=== PATIENT | female | born 1955 | race Caucasian/White ===

== ENCOUNTER 2016-08-03 08:14 | Outpatient (CLI) | payer BC | END 2016-08-03 08:15 | disposition home or self-care (01) | LOC: NAVSJIPCSP 08:14 | PROVIDERS: ATTEND Internal Medicine | DX: E78.5 Hyperlipidemia, unspecified (principal) | CPT/HCPCS: 36415; 80061 ==

== ENCOUNTER 2016-10-31 09:20 | Outpatient (CLI) | payer BC ==
[2016-10-31 14:29] LABS: Cardiac Risk 3.5 (Less than 4.5)
== END 2016-10-31 09:21 | disposition home or self-care (01) ==
LOC: NAVSJIPCSP 09:20
PROVIDERS: ATTEND Internal Medicine
DX: E78.5 Hyperlipidemia, unspecified (principal); I11.9 Hypertensive heart disease without heart failure; Z79.899 Other long term (current) drug therapy
CPT/HCPCS: 36415; 80061

== ENCOUNTER 2017-01-29 08:24 | Outpatient (CLI) | payer BC ==
[2017-01-29 12:44] LABS: #Basophils 0.1 thou/uL (0.0-0.2); #Eosinphils 0.1 thou/uL (0.0-0.7); #Lymphocytes 3.5 thou/uL (1.20-3.40); #Monocytes 0.5 thou/uL (0.11-0.59); #Neutrophils 2.8 thou/uL (1.40-6.50); %Eosinophils 1.7 % (0.0-10.0); %Lymphocytes 49.9 % (21.0-51.0); %Monocytes 7.4 % (0.0-10.0); %Neutrophils 40.1 % (42.0-75.0); Hemoglobin 12.7 g/dL (12.0-16.0); Mean Corpuscular Volume 97.1 fl (81.0-99.0); Mean Platelet Volume 6.5 fL (7.4-10.4); Platelet Count 249 thou/uL (130-400); Red Blood Cell (RBC) Count 3.97 mill/uL (4.20-5.40); White Blood Cell (WBC) Count 6.9 thou/uL (4.8-10.8)
[2017-01-29 13:12] LABS: Bilirubin Negative (Negative); Blood, Urine Negative (Negative); Clarity Clear (Clear); Glucose, Urine (Dipstick) Negative (Negative); Leukocyte Negative (Negative); Nitrite Negative (Negative); Protein, Urine (Dipstick) Negative (Neg-Trace); Urobilinogen 0.2 mg/dL (0.2-1.0); pH, Urine 5.5 (5.0-9.0)
[2017-01-29 13:46] LABS: Specific Gravity, Urine 1.009 (1.002-1.036)
[2017-01-29 19:52] LABS: ALT (SGPT) 21 U/L (8-55); AST (SGOT) 19 U/L (5-34); Albumin 4.2 g/dL (3.5-5.0); Alkaline Phosphatase 71 U/L (40-150); Anion Gap 12 mmol/L (10-20); BUN (Urea Nitrogen) 16 mg/dL (9.8-20.1); Bilirubin, Total 0.7 mg/dL (0.2-1.2); Calc. Creatinine Clearance 0 mL/min (70-130); Calcium 9.2 mg/dL (7.8-10.44); Carbon Dioxide 24 mmol/L (22-29); Cardiac Risk 3.1 (Less than 4.5); Chloride 107 mmol/L (98-107); Cholesterol 145 mg/dl (< 200 Desired); Estimated GFR-MDRD 64; Globulin 2.3 g/dL (2.4-3.5); Glucose 84 mg/dL (70-105); HDL Cholesterol 47 mg/dL (>60 Neg Risk); LDL Cholesterol, Calculated 61 mg/dL; Potassium 4.3 mmol/L (3.5-5.1); Protein, Total 6.5 g/dL (6.0-8.3); Sodium 139 mmol/L (136-145); Triglycerides 186 mg/dL (Less than 150)
== END 2017-01-29 08:25 ==
LOC: NAVSJIPCSP 08:24
PROVIDERS: ATTEND Internal Medicine
DX: I11.9 Hypertensive heart disease without heart failure (principal); E78.5 Hyperlipidemia, unspecified; F32.4 Major depressive disorder, single episode, in partial remission; G47.33 Obstructive sleep apnea (adult) (pediatric); Z79.899 Other long term (current) drug therapy
CPT/HCPCS: 36415; 80053; 80061; 81003; 85025

== ENCOUNTER 2019-02-05 16:52 | Emergency (ER) | payer SELFPAY ==
[2019-02-05] MEDS ORDERED: Sodium Chloride 0.9% 1,000 ML ONE ×3 (17:08→18:57)
[2019-02-05] MEDS ORDERED: Morphine 4 MG/ML VIAL ONE ×2 (17:08→17:37)
[2019-02-05] MEDS ORDERED: Ondansetron PF 4 MG/2 ML Vial ONE (17:08)
[2019-02-05 17:16] LABS: Hemoglobin 14.2 g/dL (12.0-16.0); Mean Corpuscular HGB CONC 32.9 g/dL (32.0-36.0); Mean Corpuscular Hemoglobin 31.5 pg (27.0-31.0); Mean Corpuscular Volume 95.9 fL (78.0-98.0); Mean Platelet Volume 6.9 fL (7.4-10.4); Platelet Count 304 thou/uL (130-400); RBC Distribution Width 12.5 % (11.5-14.5); Red Blood Cell (RBC) Count 4.52 mill/uL (4.20-5.40); White Blood Cell (WBC) Count 8.2 thou/uL (4.8-10.8)
[2019-02-05 17:30] LABS: ALT (SGPT) 19 U/L (8-55); AST (SGOT) 24 U/L (5-34); Albumin 4.5 g/dL (3.4-4.8); Alkaline Phosphatase 77 U/L (40-150); Anion Gap 24 mmol/L (10-20); BUN (Urea Nitrogen) 13 mg/dL (9.8-20.1); Calc. Creatinine Clearance 0 mL/min (70-130); Calcium 10.6 mg/dL (7.8-10.44); Carbon Dioxide 16 mmol/L (23-31); Chloride 102 mmol/L (98-107); Estimated GFR-MDRD 54; Globulin 3.3 g/dL (2.4-3.5); Glucose 123 mg/dL (80-115); Lipase 257 U/L (8-78); Protein, Total 7.8 g/dL (6.0-8.3); Sodium 138 mmol/L (136-145)
[2019-02-05] MEDS ORDERED: Ketorolac Tromethamine 30 MG/ML VIAL ONE (17:37)
[2019-02-05 17:43] LABS: Band 2 % (5-11); Eosinophils 1 % (0-10); Lymphocytes 22 % (21-51); MDiff Complete? YES; Monocytes 5 % (0-10); Neutrophil 70 % (42-75); Platelet Morphology Comment Appears Adequate; RBC Morphology Normal
[2019-02-05 18:29] LABS: Bilirubin Small (Negative); Blood, Urine Small (Negative); Clarity Clear (Clear); Glucose, Urine (Dipstick) Negative (Negative); Leukocyte Trace (Negative); Nitrite Negative (Negative); Protein, Urine (Dipstick) 30 mg/dL (Neg-Trace); Urobilinogen 0.2 mg/dL (Less than 2)
[2019-02-05] MEDS ORDERED: Meropenem 500 MG VIAL ONE (18:31)
[2019-02-05 18:34] LABS: RBC/HPF 0-3 HPF (0-3)
[2019-02-05 18:35] LABS: Bacteria/HPF Rare-Few HPF (None Seen); Squamous Epithelial 0-3 HPF (0-3)
--- NOTE | 2019-02-05 19:32 | CT ---
CT ABDOMEN AND PELVIS WITH IV CONTRAST: 02/05/19 PROVIDED CLINICAL HISTORY: Abdominal pain. FINDINGS: The visualized lung bases are free of significant opacity. Simple appearing cysts are seen involving the liver. The solid abdominal organs demonstrate an otherw ise unremarkable CT appearance. There is a prominently dilated and fluid filled appendix with multiple appendicoliths seen. There is prominent inflammatory fat stranding seen within the right lower quadrant as well as free fluid withi n the right pericolic gutter. There is no definite evidence for extraluminal gas. There is no evidenc e for bowel obstruction. The osseous structures demonstrate no concerning lytic or blastic lesions. Vascular calcifications ar e noted involving the abdominal aorta and its branches. IMPRESSION: Findings compatible with acute appendicitis. The degree of inflammatory fat stranding and fluid raise s the possibility of a perforated appendicitis. POS: MARTIR
== END 2019-02-05 19:09 | disposition short-term general hospital (02) ==
LOC: NAV ERS 16:52
DX: K35.80 Unspecified acute appendicitis (principal); E78.5 Hyperlipidemia, unspecified; E78.00 Pure hypercholesterolemia, unspecified; I10 Essential (primary) hypertension; G47.30 Sleep apnea, unspecified; F32.9 Major depressive disorder, single episode, unspecified; Z79.899 Other long term (current) drug therapy
CPT/HCPCS: 74177; 80053; 81003; 81015; 83605; 83690; 85025; 96361; 96365; 96375; J1885; J2185; J2270; J2405; J7050